=== PATIENT | male | born 1960 | race Caucasian/White ===

== ENCOUNTER 2019-08-07 07:05 | Inpatient (IN) ==
[2019-08-07] MEDS ORDERED: CARDIZEM ONE (07:10)
[2019-08-07] MEDS ORDERED: NS 1,000 ML ONE ×2 (07:10→07:22)
[2019-08-07] MEDS ORDERED: ASPIRIN PO ONE (07:14)
[2019-08-07] MEDS ORDERED: CARDIZEM 125 MG/D5W 125 MG/125 ML IVPB IV SCH (07:30)
[2019-08-07] MEDS ORDERED: NS 1,000 ML IV ONE ×2 (07:33→07:35)
[2019-08-07] MEDS ORDERED: CARDIZEM IV ONE (07:34)
[2019-08-07 07:39] LABS: BASO# 0.05 X1000 (0.0-0.2); BASO% 0.4 % (0.0-0.8); EOS# 0.24 X1000 (0.0-0.7); EOS% 1.8 % (0.0-10.0); HEMATOCRIT 47.1 % (42.0-52.0); HEMOGLOBIN 16.2 g/dL (14.0-18.0); IMM GRAN# 0.02 X1000 (0.0-0.04); IMM GRAN% 0.2 % (0.0-0.5); LYMPH# 2.75 X1000 (1.2-3.4); LYMPH% 20.7 % (20.5-51.1); MCH 29.1 PG (27-31); MCHC 34.4 g/dL (33-37); MCV 84.6 FL (81-99); MONO# 1.47 X1000 (0.11-0.59); MONO% 11.1 % (1.7-9.3); NEUT# 8.77 X1000 (1.4-6.5); NEUT% 65.8 % (42.2-75.2); PLT 252 X1000 (130-400); RBC 5.57 XMIL (4.7-6.1); RDW 13.1 % (11.5-14.5)
--- NOTE | 2019-08-07 07:40 | PROVIDER DOCUMENTATION ---
HPI-Cardiac General - General Chief Complaint: Chest Pain Stated Complaint: CHEST PAIN Time Seen by Provider: 08/07/19 07:12 Source: patient Allergies/Adverse Reactions: Patient Allergies Allergy/AdvReac Type Severity Reaction Status Date / Time No Known Allergies Allergy Verified 08/07/19 09:13 Home Medications: Home Medication List Medication Instructions Recorded Confirmed Last Taken Type NK [No Home Medications] 08/07/19 08/07/19 Unknown History - History of Present Illness-Cardiac Nature of Presenting Problem: Was @ work. About an hour ago, had sudden onset of weakness, diaphoresis, SOB. No CP, no palpitations. Did have indigestion, no diarrhea, no fever. nothing made better nor worse. EKG shows SVT, is hypotensive Review of Systems - Adult - REVIEW OF SYSTEMS - ADULT Constitutional: reports: see HPI Eyes: reports: no symptoms reported Ears, Nose, Mouth & Throat: reports: no symptoms reported Cardiovascular: reports: no symptoms reported Respiratory: reports: see HPI Gastrointestinal: reports: see HPI Genitourinary: reports: no symptoms reported Musculoskeletal: reports: no symptoms reported Integumentary: reports: see HPI Neurological: reports: no symptoms reported Psychiatric: reports: no symptoms reported Endocrine: reports: no symptoms reported Hematologic/Lymphatic: reports: no symptoms reported Allergic/Immunologic: reports: no symptoms reported Past History - Adult - PAST MEDICAL HISTORY-ADULT Review of Records: reports: Medications Reviewed Major Childhood Illnesses: reports: denies history Cardiovascular: reports: denies history Respiratory: reports: denies history Gastrointestinal: reports: denies history Obstetrical/Gynecological: reports: denies history Genitourinary: reports: denies history Musculoskeletal: reports: denies history Neurological: reports: denies history Endocrine/Immune: reports: denies history Other Conditions: reports: denies history - FAMILY HISTORY Family History: reviewed, not pertinent Physical Exam-General - PHYSICAL EXAM-ADULT Initial Vital Signs Reviewed: Yes - CONSTITUTIONAL General Appearance: moderate distress, slow to respond, other (diaphoretic) - EYES Eyes: PERRL/EOMI, pink conjunctivae - HEAD, EARS, NOSE, MOUTH & THROAT HENMT: normocephalic/atraumatic, moist mucous membranes, normal ENT inspection, pharynx normal - NECK Neck: full range of motion, supple, normal inspection - RESPIRATORY Respiratory: lungs clear - CARDIOVASCULAR Cardiovascular: bradycardia - GASTROINTESTINAL (ABDOMEN) Abdominal Exam: non tender, soft - MUSCULOSKELETAL Extremity: normal range of motion, non-tender - SKIN Integumentary: diaphoresis, pallor - NEUROLOGIC Neurologic: logistics intern II-XII nml as tested, grossly normal, no motor/sensory deficits - PSYCHIATRIC Psych/Mental Status: normal mood/affect, normal thought content, normal thought process, oriented x 3 Progress - PLAN OF CARE/RESULTS Progress/Plan/Lab Results: After converted to SR with cardiaziem, pt c/o R sided CP. Result Diagrams: 08/07/19 07:10 08/07/19 07:10 - EKG 1 Time of EKG reading by physician:: 07:11 EKG Read and Signed by:: Fernandez Potter EKG Interpretation (*Must complete 3 of following elements*): Abnormal Rate: 184 Rhythm: SVT QRS: poor R wave progression (anteriorly) ST Wave: depressed (due to rate) 2 Time of EKG reading by physician:: 07:48 EKG Read and Signed by:: Fernandez Potter EKG Interpretation (*Must complete 3 of following elements*): Abnormal Rate: 79 Rhythm: NSR QRS: normal ST Wave: non-specific ST changes - CONSULTS/PCP/HOSPITALIST Notification #1 *Consult/PCP/Hospitalist*: Page Time Discussed: 08:30 Consult Disposition: Will see in ED, Admit Departure - Departure Date of Disposition Decision: 08/07/19 Time of Disposition Decision: 07:15 DIAGNOSIS: SVT (supraventricular tachycardia) Disposition: ADMITTED INPATIENT 09 Certified Medical Emergency: Emergent Condition: Stable - Critical Care Note This patient required my direct & personal management of CC.: Yes Total Time (mins): 35 Critical Care Statement: This patient required my direct personal management to treat or rule out processes, the absence of which, could potentiallly result in sudden, clinically significant life or limb threatening deterioration. Attestation - Physician/ MAIRA Attestation Patient care was provided by Advanced Practice Provider:: No The physician spent face to face time with patient:: Yes Advanced Practice Provider documentation review:: Supervising physician onsite and consulted in the evaluation and care of this patient. The physician did have a face to face encounter with the patient.
[2019-08-07 07:44] LABS: INR 0.87; PROTIME 12.3 Seconds (11.0-16.0); PTT 27.6 Seconds (22.3-41.8)
[2019-08-07 08:01] LABS: ALBUMIN 4.6 g/dL (3.5-5.0); CALCIUM 9.4 mg/dL (8.8-10.2); CREATININE 1.5 mg/dL (0.7-1.2); TOTAL BILIRUBIN 0.5 mg/dL (0.20-1.00); TOTAL PROTEIN 7.3 g/dL (6.3-8.3)
[2019-08-07 08:24] LABS: CK-MB 5.8 ng/mL (0.0-5.0)
--- NOTE | 2019-08-07 08:51 | Diag Imaging Result Doc PS360 ---
EXAM: CHEST-PORTABLE HISTORY: chest pain svt TECHNIQUE: Single view of the chest was performed portably. COMPARISON: 07/17/2016 FINDINGS: The cardiomediastinal silhouette is within normal limits. There is pulmonary vascular congestion and probable bilateral interstitial infiltrates right greater than left. No effusions. No pneumothorax is appreciated. IMPRESSION: Vascular congestion with bilateral interstitial infiltrates right greater than left. Consider follow-up PA and lateral . Electronically signed by Hanh Walls 08/07/2019 8:49 AM
--- NOTE | 2019-08-07 09:13 | EKG Report ---
Test Performed on : 08/07/2019 07:46:33 AM Test Reason : CP Blood Pressure : / mmHG Vent. Rate : 079 BPM Atrial Rate : 079 BPM P-R Int : 136 ms QRS Dur : 074 ms QT Int : 402 ms P-R-T Axes : 042 043 022 degrees QTc Int : 460 ms Normal sinus rhythm. Nonspecific ST abnormality Abnormal ECG When compared with ECG of 07-AUG-2019 07:09, (Unconfirmed) Vent. rate has decreased BY 105 BPM Criteria for Anterior infarct are no longer present ST no longer depressed in Inferior leads ST no longer depressed in Lateral leads T wave inversion no longer evident in Inferior leads Confirmed by North Hoff MD ([id number]), acquisition editor Andreia Conti ([id number]) on 09/11/2019 12:38:10 PM
--- NOTE | 2019-08-07 09:13 | EKG Report ---
Test Performed on : 08/07/2019 07:09:10 AM Test Reason : chest pain svt Blood Pressure : / mmHG Vent. Rate : 184 BPM Atrial Rate : 250 BPM P-R Int : 000 ms QRS Dur : 076 ms QT Int : 246 ms P-R-T Axes : 000 067 243 degrees QTc Int : 430 ms Supraventricular tachycardia. Anterior infarct , age undetermined Marked ST abnormality, possible inferolateral subendocardial injury Abnormal ECG When compared with ECG of 17-JUL-2016 16:51, Vent. rate has increased BY 99 BPM Anterior infarct is now present ST now depressed in Inferior leads ST now depressed in Anterolateral leads T wave inversion now evident in Inferior leads Confirmed by North Hoff MD ([id number]), business editor Andreia Conti ([id number]) on 09/11/2019 12:38:10 PM
[2019-08-07] MEDS ORDERED: CARDIZEM PO ONE (10:09)
[2019-08-07] MEDS ORDERED: ZOFRAN IV PRN (10:49)
[2019-08-07] MEDS ORDERED: TYLENOL PO PRN (10:49)
[2019-08-07] MEDS ORDERED: FLU VACCINE IM ONE (11:14)
--- NOTE | 2019-08-07 11:49 | HISTORY AND PHYSICAL ---
PRIMARY CARE PHYSICIAN: None. CHIEF COMPLAINT: Sudden onset of weakness, diaphoresis, shortness of breath, chest tightness and indigestion. HISTORY OF PRESENTING ILLNESS: This is a 59-year-old male who presented to [facility] ER with complaints of a sudden onset of weakness, diaphoresis, shortness of breath, chest tightness and indigestion that began while he was at work this morning. When he arrived to the emergency room his EKG showed SVT at 184. He was given Cardizem 20 mg IV x1 and placed on a Cardizem drip. He did convert back to normal sinus rhythm with his 2nd set EKG showing normal sinus rhythm at 79 approximately 15 minutes after arrival. He denied any chest pain, but did state he had some chest tightness momentarily. Denied feeling any palpitations. He has no past medical history. So, he will be admitted to the medical floor. We are going to discontinue the Cardizem drip as he has converted and place him on Cardizem 30 mg p.o. q.6 hours and admit for further evaluation and treatment. PAST MEDICAL HISTORY: None. PAST SURGICAL HISTORY: None. FAMILY HISTORY: Reviewed and noncontributory. SOCIAL HISTORY: Currently lives with family. Denies any tobacco, alcohol or illicit drug use. ALLERGIES: He has no known drug allergies. HOME MEDICATIONS: He does not take any medications on a routine basis. LABORATORY DATA: Showed a white blood cell count of 13.30, hemoglobin 16.2, hematocrit 47.1, platelets 252,000. PT and INR of 12.3 and 0.87. Sodium 142, potassium 4, chloride 105, CO2 19, BUN of 16, creatinine of 1.5, glucose 211, magnesium 2.1. Creatine kinase of 283 with a CK-MB of 5.80, troponin less than 0.010. TSH of 4.69. EKG on arrival showed SVT at 184. After intervention with medications approximately 20 minutes later was normal sinus rhythm at 79. Chest x-ray showed vascular congestion with bilateral interstitial infiltrates, right greater than left. Consider a followup PA and lateral. REVIEW OF SYSTEMS: He denied any fever, chills, blurred vision, dizziness. He was feeling weak, diaphoretic, short of breath, had indigestion and some chest tightness. Denied any abdominal pain, constipation, diarrhea, burning or hurting with urination. PHYSICAL EXAMINATION: VITAL SIGNS: On arrival, he had a temperature of 98 degrees, pulse was 185, respirations 42, blood pressure was 71/52, saturating 100% on room air. Currently, heart rate is down to 81, blood pressure is up to 109/81. GENERAL: This is a 59-year-old male who is lying in the bed and answers questions appropriately. HEENT: Normocephalic, atraumatic. Normal ENT inspection. Oropharynx and nares are clear. EYES: Pupils are equal, round, reactive to light and accommodation. Extraocular movements are intact. NECK: Normal inspection. Normal range of motion. LUNGS: Clear to auscultation bilaterally with equal lung expansion and chest wall movement. HEART: On arrival had irregular rate and rhythm with SVT in the 180s now in normal sinus rhythm. No murmurs, rubs, or gallops in the 80s. ABDOMEN: Soft, nontender, nondistended. Bowel sounds are present x4 quadrants. MUSCULOSKELETAL: Has 5/5 strength x4 extremities. NEUROLOGICAL: The cranial nerves 2-12 appear grossly intact. ASSESSMENT: 1. Supraventricular tachycardia, resolved, now converted to normal sinus rhythm. 2. Acute kidney injury. 3. Hyperglycemia. 4. Hypotension now resolved. PLAN: He will be admitted to the medical unit at [place]. We will discontinue the Cardizem drip as he has converted and place him on Cardizem 30 mg q.6 hours. First dose now. Place him on telemetry, healthy heart diet, n.p.o. after midnight for a myocardial perfusion scan. We will do an echocardiogram in the a.m. Consult Cardiology. Place on Lovenox 40 mg subcutaneous every 24 hours for DVT prophylaxis. Give him Prilosec 40 mg p.o. daily, Zofran 4 mg IV q.4 hours p.r.n. We are going to check a hemoglobin A1c. We will do serial cardiac enzymes. Check a free T4 and in the a.m. we will check a 2-view chest x-ray. Further orders after seen by attending. We are also going to add normal saline at 75 mL an hour. Dictated by ALEXIS Posey for Kael Harper MD cc: ALEXIS Posey MD
[2019-08-07] MEDS: PRILOSEC PO SCH (12:20)
[2019-08-07] MEDS: NS 1,000 ML IV SCH (12:20)
[2019-08-07] MEDS: LOVENOX SUBQ SCH (12:21)
[2019-08-07 12:40] LABS: HEMOGLOBIN A1C 5.3 % (4.8-6.0)
--- NOTE | 2019-08-07 13:19 | EKG Report ---
Test Performed on : 08/07/2019 12:46:42 PM Test Reason : SVT Blood Pressure : / mmHG Vent. Rate : 078 BPM Atrial Rate : 078 BPM P-R Int : 154 ms QRS Dur : 076 ms QT Int : 378 ms P-R-T Axes : 039 043 030 degrees QTc Int : 430 ms Normal sinus rhythm. Normal ECG When compared with ECG of 07-AUG-2019 07:46, (Unconfirmed) No significant change was found Confirmed by North Hoff MD ([id number]) on 08/17/2019 1:50:52 AM
[2019-08-07 13:27] LABS: CK INDEX 4.3 (0.0-2.5); CK-MB 12.3 ng/mL (0.0-5.0)
[2019-08-07] MEDS: CARDIZEM PO SCH ×2 (15:10→21:00)
[2019-08-07 20:12] LABS: CK INDEX 4.3 (0.0-2.5); CK-MB 11.2 ng/mL (0.0-5.0)
--- NOTE | 2019-08-07 21:10 | ECHO REPORT ---
ORDER DATE: 08/07/2019 INTERPRETING PHYSICIAN: Dr. Torres CLINICAL INDICATIONS: Supraventricular tachycardia. M-MODE MEASUREMENTS: Left ventricle end diastole: 4.4 cm. Left ventricle end systole: 3.1 cm. Posterior wall: 0.8 cm. Interventricular septum: 0.9 cm. Left atrium: 3.5 cm. Aortic diameter: 3.8 cm. SUMMARY OF 2-DIMENSIONAL IMAGIN. Left ventricular function is normal. Ejection fraction is estimated at 59%. There is no wall motion abnormality. The right ventricle appears to be normal. 2. Aortic valve has three cusps. They open normally. Color flow mapping unremarkable. 3. Mitral valve shows a mild degree of regurgitation. 4. The pulse wave Doppler of mitral inflow is normal. 5. Tissue Doppler of septal and lateral mitral annulus averages 11 cm. There is no diastolic dysfunction. 6. The tricuspid valve is normal. Color flow mapping unremarkable. 7. Pulmonary pressure is normal. Pulmonary valve appears to be within normal range. 8. There is no pericardial effusion, no mass, and no thrombus. 9. The right-sided chambers appear to be normal. Clinical correlation is recommended. cc: MD Juanis Mendoza CRNP
--- NOTE | 2019-08-07 22:32 | HISTORY AND PHYSICAL ---
ADDENDUM: Patient seen and examined by myself. Full note dictated and discussed the nurse practitioner. Patient presented to the hospital with sudden onset of chest pain, shortness of breath and chest tightness. He was noted to be in supraventricular tachycardia in the ER. Thankfully after being given Cardizem, he has converted back to sinus rhythm rate controlled. His 1st troponin was negative. His second was mildly elevated. We are going to admit him to the hospital and follow. cc: Kael Harper MD
[2019-08-08] MEDS: NS 1,000 ML IV SCH ×2 (01:12→14:45)
[2019-08-08] MEDS: CARDIZEM PO SCH ×4 (01:12→20:16)
[2019-08-08 03:48] LABS: CK INDEX 3.2 (0.0-2.5); CK-MB 6.68 ng/mL (0.0-5.0)
--- NOTE | 2019-08-08 06:09 | Diag Imaging Result Doc PS360 ---
EXAM: CHEST-2 VIEWS HISTORY: SOB TECHNIQUE: Two views COMPARISON: 08/07/2019 FINDINGS: The lungs are hyperexpanded. The heart is not enlarged. The vessels are small. There are no infiltrates. No pleural effusions. Nodular area in the outer mid right lung is unchanged. IMPRESSION: Emphysema. Improved pulmonary edema. Midright lung nodule. Electronically signed by Reuben Davidson 08/08/2019 6:07 AM
[2019-08-08] MEDS: PRILOSEC PO SCH (07:21)
[2019-08-08] MEDS ORDERED: SODIUM BICARBONATE 8.4% 150 MEQ in D5W 1,000 ML IV SCH (09:00)
[2019-08-08 09:37] LABS: BASO# 0.03 X1000 (0.0-0.2); BASO% 0.3 % (0.0-0.8); EOS# 0.08 X1000 (0.0-0.7); EOS% 0.9 % (0.0-10.0); HEMATOCRIT 43.8 % (42.0-52.0); HEMOGLOBIN 14.7 g/dL (14.0-18.0); IMM GRAN# 0.02 X1000 (0.0-0.04); IMM GRAN% 0.2 % (0.0-0.5); LYMPH# 1.37 X1000 (1.2-3.4); LYMPH% 14.9 % (20.5-51.1); MCH 28.8 PG (27-31); MCHC 33.6 g/dL (33-37); MCV 85.9 FL (81-99); MONO% 8.7 % (1.7-9.3); MPV 9.7 FL (7.4-10.4); PLT 180 X1000 (130-400); RDW 13.3 % (11.5-14.5)
[2019-08-08] MEDS: MUCOMYST 20% PO SCH ×2 (09:44→20:16)
[2019-08-08 10:24] LABS: CK INDEX 2.9 (0.0-2.5); CK-MB 5.91 ng/mL (0.0-5.0)
[2019-08-08 10:54] LABS: AGAP 11; ALBUMIN 4.5 g/dL (3.5-5.0); ALKALINE PHOSPHATASE 72 U/L (32-122); BUN 13 mg/dL (8-22); CHLORIDE 108 mmol/L (98-107); COSMO 282; ESTIMATED GFR > 60; GLUCOSE 111 mg/dL (70-104); GOT 24 U/L (10-34); GPT 22 U/L (10-44); POTASSIUM 4.9 mmol/L (3.5-5.1); SODIUM 141 mmol/L (136-145); TCO2 22 mmol/L (25-35); TOTAL PROTEIN 6.5 g/dL (6.3-8.3)
[2019-08-08] MEDS ORDERED: HEPARIN 1000 UNITS/NS 2,000 UNIT/1,000 ML IV.SOLN ONE (11:47)
--- NOTE | 2019-08-08 11:57 | CARDIOLOGY CONSULTATION ---
DATE: 08/08/2019 REQUESTING PHYSICIAN: Hospitalist Service. REASON FOR CONSULTATION: Chest pain, positive troponins, arrhythmia. HISTORY OF PRESENT ILLNESS: Mr. Mack presented to the [facility] yesterday, 08/07/2019 in the morning at about 7 a.m. with complaints of sudden onset of palpitations. 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 As he was doing that, he felt tightness in the chest, indigestion, weakness, diaphoresis. He went to the emergency room, and they found that he was in a supraventricular tachycardia with a heart rate of 184 beats per minute, with diffuse ST-T abnormality in multiple leads. The patient converted with medications back to normal sinus rhythm. He was placed on diltiazem. Then, they started checking his cardiac enzymes, and overnight they have become positive. The first cardiac enzyme at 7 a.m. was less than 0.10, and then at 12 noon became 0.135, then 0.201, then 0.124. His CPK also tyrell from 283 to 287, and then it is down to 206. His CK-MB fraction was positive, highest was 12.3 ng/mL. The patient is feeling better now. After discussion with Dr. Harper, we felt that probably we should go ahead and do a heart catheterization for definitive diagnosis. An echocardiogram was done yesterday that came back normal. PAST MEDICAL HISTORY: Negative. He does not have hypertension or hyperlipidemia. PAST SURGICAL HISTORY: He has no prior operations. FAMILY HISTORY: Mother has had coronary heart disease and stent. SOCIAL HISTORY: He lives with his . 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 He is very active throughout his shift. He is not a smoker nor a drinker. ALLERGIES: He is not allergic to any drugs. MEDICATIONS: He is not taking any home medication. Since admission to the hospital, he has been placed on diltiazem, enoxaparin, and aspirin. REVIEW OF SYSTEMS: The patient admittedly snores at night. He also suffers from indigestion. He takes Tums quite often. He has not had any stress test recently. He does not have any primary medical physician that he sees on a regular basis. PHYSICAL EXAMINATION: Vital Signs: Blood pressure is 113/69, temperature 98.2 degrees, pulse 83, respirations 16. General: He is awake, alert, oriented, in no distress. HEENT: Unremarkable. Chest: Clear to auscultation and percussion. Heart: Regular and rhythmic. No gallop or murmur. Abdomen: Soft, nontender. No masses. No hepatomegaly. Extremities: Good pulses. No peripheral edema. Neurologic: Follows commands. Moves all 4 extremities. IMPRESSION: 1. Patient who presented with a supraventricular tachycardia with diffuse ST-T abnormality. 2. Non ST-elevation myocardial infarction. 3. Family history of coronary heart disease. RECOMMENDATION: At this time, I am recommending to pursue heart catheterization. Benefits, risks, and complications were discussed. He understood and requested to proceed. We are going to check a lipid panel on him, and further advice will be forthcoming. Thank you again for the opportunity to participate in his evaluation. cc: Enrico Torres MD
[2019-08-08] MEDS: LOVENOX SUBQ SCH ×2 (12:03→20:16)
[2019-08-08] MEDS ORDERED: DEMEROL ONE (12:13)
[2019-08-08] MEDS ORDERED: NS 1,000 ML ONE (12:13)
[2019-08-08] MEDS ORDERED: ANESTHESIA PB SET 88 IN 5742 ONE (12:13)
[2019-08-08] MEDS ORDERED: VERSED ONE (12:13)
--- NOTE | 2019-08-08 14:00 | EKG Report ---
Test Performed on : 08/08/2019 1:27:10 PM Test Reason : s/p heart cath Blood Pressure : / mmHG Vent. Rate : 072 BPM Atrial Rate : 072 BPM P-R Int : 158 ms QRS Dur : 084 ms QT Int : 386 ms P-R-T Axes : 069 074 064 degrees QTc Int : 422 ms Normal sinus rhythm. Normal ECG When compared with ECG of 07-AUG-2019 12:46, (Unconfirmed) No significant change was found Confirmed by Rika MENDEZ, Reji ([id number]) on 08/08/2019 4:57:20 PM
--- NOTE | 2019-08-08 14:33 | CARDIAC CATH REPORT ---
DATE: 08/08/2019 PROCEDURES: 1. Left heart catheterization. 2. Selective bilateral coronary arteriography. 3. Left ventriculography. 4. Opacification of the right femoral artery with deployment of 6 Swiss Angio- Seal device. HISTORY: A 59-year-old male presented to [facility] on 08/07 with weakness, palpitations, chest tightness. Troponins became positive and CPKs went up and down consistent with a non-ST myocardial infarction. Because of his age and family risk factors was recommended to pursue heart catheterization for definitive diagnosis. There was a strong suspicion that he indeed had coronary stenosis. Benefits, risks and complications were discussed. He understood and requested to proceed. He was placed on bicarbonate drip and Mucomyst to minimize possible renal dysfunction from the dye. He was also given Visipaque for the procedure. DESCRIPTION: The patient was brought to the cardiac canvas shop laborer. He received 2 doses of Versed 1 mg, 2 doses of Demerol 25 mg for sedation. The right groin was prepped and draped in the sterile fashion, anesthetized with lidocaine 1%. A 6 Swiss sheath was inserted into the right femoral artery following the modified Seldinger technique. Using a 6 Swiss left Augustina 4 and right Augustina 4 catheter, the left and right coronary artery was sequentially opacified in multiple projections. Thereafter using the right Augustina catheter, the left ventricle was opacified in the 60 degree BOTSWANAN projection and 30 degree SCHMID projection by hand injection. At the end of the procedure, the catheters were removed, the sheath was flushed. The right femoral artery opacified and Angio-Seal device deployed successfully. Adequate hemostasis was achieved. The patient tolerated the procedure well without complication. SUMMARY OF HEMODYNAMIC FINDINGS: Central aortic pressure 115/71, left ventricular pressure 112/46, post LV gram 100/7. Final central aortic pressure 98/68. SUMMARY OF THE ANGIOGRAPHIC FINDINGS: 1. Left main coronary artery: The vessel arises from the left coronary sinus of Valsalva in a normal fashion and is free of disease, divides into LAD and circumflex. 2. Left anterior descending coronary artery: The vessel appears to be angiographically normal. There is a question of an ostial plaque no more than 10%. There is sluggish flow ALVINO grade 2- [address] to the apex of the left ventricle. It takes about 4-5 heartbeats for the dye to reach the apex. There is also very sluggish flow along the first diagonal branch. These 2 vessels are free of any significant obstruction. 3. Circumflex coronary artery: The circumflex coronary artery is a nondominant vessel comprises 2 marginal vessels. These 2 vessels also show some sluggish flow not as bad as the LAD. The circumflex is angiographically normal. 4. Right coronary artery: The right coronary artery is a large dominant system again showing very sluggish flow. It takes about 9-10 heartbeats for the flow to reach the terminal PDA. The PDA is a good vessel free of obstruction. The posterior lateral branches are also free of any obstruction. The right coronary artery gives rise to a sinus jimmy branch. LEFT VENTRICULOGRAM: Left ventriculogram in the 30 degree SCHMID projection and 60 degree BOTSWANAN projection shows a hyperdynamic left ventricle, ejection fraction is estimated at 65% to 70%. There is almost obliteration of the chamber at end-diastole. OPACIFICATION OF THE RIGHT FEMORAL ARTERY: The right femoral artery is normal. Angio-Seal device deployed successfully. SUMMARY: This study shows: 1. Essentially normal epicardial coronary arteries. I do not identify any significant stenosis anywhere. There may be a 10% plaque in the ostial LAD. The right coronary artery is a large dominant system. 2. Hyperdynamic left ventricle. 3. Normal left ventricular end-diastolic pressure. 4. No mitral regurgitation or aortic stenosis. 5. Unremarkable right femoral artery, successful deployment of Angio-Seal device. COMMENT: The patient has very sluggish flow ALVINO grade 2-3 along the LAD, its first diagonal branch, and also the distal right coronary artery. The reason for this is unclear. We may have to investigate for hematological issues. Blood viscosity and so forth. Will probably act on the prudent side of putting him on cholesterol-lowering medications if his LDL cholesterol is over 100 and also put him on either Plavix or aspirin and consider also close followup in the next few weeks. We will observe the patient today. cc: Enrico Torres MD [facility]Los
--- NOTE | 2019-08-08 17:16 | PROGRESS NOTE ---
DATE: 08/08/2019 SUBJECTIVE: The patient denies any current chest pains, palpitations. Denies any diaphoresis, shortness of breath. Denies any left arm pain. States his symptoms have improved. Denies any recurrent palpitations. PHYSICAL EXAMINATION: vital signs: Temperature 98.2, pulse 87, respiratory rate 18, BP 113/69. General: The patient is awake. Currently he is in no respiratory distress. He is very pleasant, lying in the bed. HEENT: Normocephalic. Neck: Supple. Cardiovascular: Regular rate. No murmurs. Chest: Clear, nonlabored. Abdomen: Soft, nondistended. Extremities: Moves all extremities. ASSESSMENT: 1. Supraventricular tachycardia, resolved. 2. Acute kidney injury, improved. 3. Elevated troponin. 4. Hyperglycemia. PLAN: Overall, the patient is stable. However, he did have elevated troponins that tyrell to 0.201 and have decreased back to 0.124. We discussed with Cardiology and he is going to transfer to [facility] [place] for a left heart catheterization to rule out any acute coronary disease. Further orders after the heart catheterization per Cardiology. cc: Kael Harper MD
[2019-08-08] MEDS ORDERED: LIPITOR PO SCH (21:00)
[2019-08-09] MEDS ORDERED: TYLENOL PO PRN (02:01)
[2019-08-09] MEDS ORDERED: ZOFRAN IV PRN (02:02)
[2019-08-09] MEDS: CARDIZEM PO SCH ×2 (02:14→08:10)
[2019-08-09] MEDS ORDERED: NS 1,000 ML IV SCH (03:00)
[2019-08-09] MEDS ORDERED: SODIUM BICARBONATE 8.4% 150 MEQ in D5W 1,000 ML IV SCH (03:00)
[2019-08-09 06:15] LABS: AGAP 12; BUN 14 mg/dL (8-22); CALCIUM 8.3 mg/dL (8.8-10.2); CHLORIDE 104 mmol/L (98-107); COSMO 279; CREATININE 0.9 mg/dL (0.7-1.2); ESTIMATED GFR > 60; GLUCOSE 121 mg/dL (70-104); POTASSIUM 3.8 mmol/L (3.5-5.1); SODIUM 139 mmol/L (136-145); TCO2 23 mmol/L (25-35)
[2019-08-09] MEDS ORDERED: PRILOSEC PO SCH (07:00)
[2019-08-09 07:56] VITALS: BP 119/84
[2019-08-09] MEDS ORDERED: PLAVIX PO SCH (09:00)
[2019-08-09] MEDS ORDERED: CARDIZEM CD PO SCH (09:00)
[2019-08-09] MEDS ORDERED: MUCOMYST 20% PO SCH (09:00)
--- NOTE | 2019-08-09 11:00 | CARDIOLOGY PROGRESS NOTE ---
DATE: 08/09/2019 SUBJECTIVE: Patient has no complaints today. He has no pain complaints, no palpitations. PHYSICAL EXAMINATION: Vital signs: Afebrile. Heart rate 69, blood pressure 119/84. General: He is in no acute distress. Cardiovascular: He sounds to be in a regular rate and rhythm. He has no murmurs. He has no S3. He has no lower extremity edema. Groin: His right groin site has no hematoma, no bruit. Minimal tenderness. Chest: Clear bilaterally. No increased work of breathing. Abdomen: Soft, nontender. PERTINENT DATA: Sodium 139, potassium 3.8, BUN 14, creatinine 0.9. ASSESSMENT: Mr. Mack is a 59-year-old gentleman who underwent cardiac catheterization yesterday, presented with supraventricular tachycardia. PLAN: At this point, his cardiac catheterization does not demonstrate any flow-limiting disease. I agree with the medications he is presently on per Dr. Torres's recommendations. The patient may be discharged from a Cardiology standpoint to follow up with Dr. Torres. cc: Momo Morrow MD
--- NOTE | 2019-08-09 11:25 | DISCHARGE SUMMARY ---
ADMISSION DATE: 08/07/2019 DISCHARGE DATE: 08/09/2019 PRIMARY CARE PROVIDER: None. CONSULTATIONS: Dr. Torres with cardiology. PERTINENT PROCEDURES: Echocardiogram, EF of 59%. Left heart catheterization essentially showed normal coronary arteries. No significant stenosis was found. DISCHARGE DIAGNOSES: 1. Supraventricular tachycardia, resolved. 2. Acute kidney injury, improved. 3. Elevated troponins with a negative left heart catheterization. 4. Hyperglycemia with a normal hemoglobin A1c of 5.3. 5. Non-ST elevation myocardial infarction and underwent a left heart catheterization that essentially showed normal coronary arteries. The patient was placed on a statin and Plavix. HOSPITAL COURSE: Briefly, Mr. Mack is a 59-year-old gentleman who reported no past medical history. He came to [facility] ER complaining of palpitations while he was at work. He also had some chest tightness, weakness, and diaphoresis. He went to the ED where he was found to be in SVT with heart rates up in the 180s with some ST-T wave abnormalities in multiple leads. He was converted with medication back into normal sinus rhythm and placed on Cardizem. His initial cardiac enzymes were negative. However, overnight, he trended positive and was transferred to [facility] and underwent a left heart catheterization with Dr. Torres that essentially showed clear coronary arteries. He did recommend to place him on cholesterol-lowering medication as well as Plavix and continue him on Cardizem for his SVT. VITAL SIGNS: At the time of discharge, temperature is 97.2 degrees, heart rate 69, respirations 19, blood pressure 119/84, O2 is 100% on room air. DISCHARGE DIET: Healthy heart. DISCHARGE MEDICATIONS: 1. Lipitor 40 mg p.o. at bedtime. 2. Cardizem CD 120 mg p.o. daily. 3. Plavix 75 mg p.o. daily. FOLLOWUP: Mr. Mack is being discharged back home with self care. He is to find a primary care provider from the list that has been provided to him. He is to also follow up with Dr. Torres on the at 9:30 a.m. He is to take all medications as prescribed. He can return to the ED or call 911 for any worsening of symptoms. Dictated by ALEXIS Irizarry for Donaldo Celis MD Addendum: Patient seen and examined by myself. Agree with FRONT OFFICE SECRETARY note. It reflects my assessment and plan. Patient is being released in stable condition. Will be seen by Deck Steward in a month. cc: MD Enrico Andrade MD [facility]
[2019-08-09] MEDS ORDERED: LOVENOX SUBQ SCH (12:00)
== END 2019-08-09 10:57 | disposition home or self-care (01) ==
LOC: P.ED 07:05 → P.MEDSURG 07:06 → SUATTDRO 07:06 → 2N 08-08 10:50
PROVIDERS: ATTEND Internal Medicine